=== PATIENT | male | born 1955 | race Caucasian/White ===

== ENCOUNTER 2021-01-05 09:01 | Day surgery (SDC) | payer BC ==
--- NOTE | 2021-01-05 07:46 | HP ---
DATE OF SURGERY: 01/05/2021 HISTORY OF PRESENT ILLNESS: The patient is a 65-year-old he said since he had a spine procedure he has got worsening reflux. He had some chest pain. His heart cath was clear. Epigastric pain radiating to his chest. He is in need of upper endoscopy to evaluate for gastritis, esophagitis, peptic ulcer disease or other etiology. PAST MEDICAL HISTORY: Heart disease. History of hiatal hernia. History of Meniere's. History of reflux. PAST SURGICAL HISTORY: Coronary artery bypass graft x2 vessels. He had some coronary stents. He had appendectomy. He had hernia repair in the past. MEDICATIONS: Protonix, Carafate, aspirin, Toprol, amlodipine, Ranexa and Repatha. ALLERGIES: CEFDINIR. SULFA. CLOPIDOGREL. FAMILY HISTORY: Heart disease, cancer. SOCIAL HISTORY: No smoking or alcohol use. REVIEW OF SYSTEMS: Fourteen systems reviewed. No chest pain or palpitations. Other systems negative or noncontributory as above and per preadmission questionnaire. PHYSICAL EXAMINATION: GENERAL: No acute distress. HEENT: Sclerae nonicteric. NECK: No JVD. CHEST: Equal excursion, nonlabored breathing. CVS: Regular rate and rhythm. ABDOMEN: Soft. No peritoneal signs. Mild tenderness epigastrium. EXTREMITIES: No significant edema. NEURO: Alert, oriented, moving extremities symmetrically. PSYCH: Appropriate mood and affect. IMPRESSION: Epigastric pain radiating to his chest. Will proceed with EGD possible biopsy to evaluate for esophagitis, gastritis, peptic ulcer disease or other etiology. Will also check gallbladder ultrasound to rule out other etiologies such as biliary source of his symptoms. He understands and agrees to the planned procedure, will proceed with EGD possible biopsy as an outpatient.
[2021-01-05] MEDS ORDERED: Lactated Ringers 1,000 ML IV ONE (09:36)
[2021-01-05] MEDS: Lactated Ringers 1,000 ML IV SCH (09:49)
[2021-01-05] MEDS ORDERED: Versed 2 MG/2 ML Injection ONE (11:18)
[2021-01-05] MEDS ORDERED: DIPRIVAN 200 MG/20 ML IV ONE (11:18)
[2021-01-05 16:57] VITALS: BP 140/80; PULSE 62; O2SAT 98
--- NOTE | 2021-01-06 07:45 | OP ---
SURGERY DATE/TIME: 01/05/2021 1121 PREOPERATIVE DIAGNOSIS: History of increased reflux, epigastric pain, history of spine surgery in the past. POSTOPERATIVE DIAGNOSES: 1) Mild gastritis. 2) Very small hiatal hernia. 3) Small benign appearing gastric polyps fundus. PROCEDURES: 1) EGD with cold biopsy of small bowel for celiac sprue. 2) Cold biopsy of antrum to evaluate for Helicobacter pylori. 3) Cold biopsy gastric polyp. 4) Cold biopsy mid esophagus to evaluate for eosinophilic esophagitis. 5) ASA Class III. SURGEON: Dr. Reece Morales. ANESTHESIA: MAC. ESTIMATED BLOOD LOSS: Minimal. INDICATIONS: As noted above. Risks and benefits explained in detail and not limited to and consent obtained. DESCRIPTION OF PROCEDURE AND FINDINGS: The patient is taken to the endoscopy room. MAC anesthesia introduced. After official time out and no disagreement with planned procedure, a bite block positioned. Video gastroscope easily passed down the esophagus through the patent pylorus to the third portion of the duodenum. First, second, third portions of duodenum no signs of any ulcers or masses. Cold biopsy taken to evaluate for celiac sprue. Good hemostasis noted. Scope pulled back in the stomach. He had some mild gastric erythema and possibly some early mild gastritis or gastropathy. Cold biopsy taken to evaluate for Helicobacter pylori. Good hemostasis noted. The scope was slowly carefully withdrawn. Cold biopsy taken of the antrum to evaluate for Helicobacter pylori. Good hemostasis noted. He had small gastric fundal polyps. Cold biopsy taken for further evaluation and they appeared to be benign. On retroflex he did have very small hiatal hernia. It was a little bit wider than the scope itself. The scope is pulled back. The gastroesophageal junction appeared to be crisp. There were no signs of erosions. No gross signs of Alvarez's. The scope is withdrawn. Gastroesophageal junction was maybe around 38 cm or so. The scope is withdrawn. No signs of any obvious masses or mucosal lesions. Random cold biopsies taken mid esophagus to evaluate for eosinophilic esophagitis to rule out other causes. There were no immediate complications. Findings and pictures shown to the family. I will see him back in the office next week.
== END 2021-01-05 12:27 | disposition home or self-care (01) ==
LOC: SDC 09:01
PROVIDERS: ATTEND Surgery
DX: K29.70 Gastritis, unspecified, without bleeding (principal); K44.9 Diaphragmatic hernia without obstruction or gangrene; K31.7 Polyp of stomach and duodenum; I51.9 Heart disease, unspecified
CPT/HCPCS: 93005; J2250; J2704